=== PATIENT | male | born 2000 | race Native Hawaiian/Other Pacific Islander ===

== ENCOUNTER 2019-02-01 08:56 | Outpatient (CLI) | payer OTHER ==
[2019-02-01 10:05] LABS: Basophils % (Auto) 0.5 % (0.0-1.8); Eosinophils # (Auto) 0.3 K/mm3 (0.0-0.4); Eosinophils % (Auto) 6.1 % (0.0-4.3); Hematocrit 46.6 % (35.5-45.6); Hemoglobin 15.9 gm/dl (11.8-15.2); Lymphocytes # (Auto) 2.6 K/mm3 (1.2-5.4); Lymphocytes % (Auto) 45.6 % (13.4-35.0); Mean Corpuscular HGB Conc 34 % (32-34); Mean Corpuscular Volume 95 fl (84-94); Monocytes # (Auto) 0.4 K/mm3 (0.0-0.8); Monocytes % (Auto) 7.8 % (0.0-7.3); Platelet Count 200 K/mm3 (140-440); Red Blood Count 4.92 M/mm3 (3.65-5.03); Red Cell Distribution Width 12.8 % (13.2-15.2)
[2019-02-01 10:06] LABS: Alanine Aminotransferase 29 units/L (7-56); BUN/Creatinine Ratio 21; Blood Urea Nitrogen 21 mg/dL (9-20); Calcium 9.6 mg/dL (8.4-10.2); Hemolysis Index 9
[2019-02-01 10:28] LABS: Hepatitis C Virus Antibody Non-Reactive (NonReactive)
[2019-02-01 11:12] LABS: Hepatitis B Surface Antigen Non-Reactive (Negative)
== END 2019-02-01 08:57 | disposition home or self-care (01) ==
LOC: LAB 08:56
PROVIDERS: ATTEND Internal Medicine
DX: Z00.01 Encounter for general adult medical examination with abnormal findings (principal); E55.9 Vitamin D deficiency, unspecified; J06.9 Acute upper respiratory infection, unspecified
CPT/HCPCS: 36415; 80053; 80074; 82306; 82607; 85025; 86592; 86735; 86762; 86765; 86787; 87591

== ENCOUNTER 2019-05-21 16:39 | Emergency (ER) | payer OTHER ==
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
--- NOTE | 2019-05-21 18:00 | XRay Report ---
XR spine cervical 2-3V INDICATION / CLINICAL INFORMATION: Neck pain after fall. COMPARISON: None available. FINDINGS: BONES/JOINT(S): No vertebral fracture. No significant degenerative changes. SOFT TISSUES: No significant abnormality. ADDITIONAL FINDINGS: None. Signer Name: Marc Hickey MD Signed: 05/21/2019 5:55 PM Workstation Name: [id number]
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
[2019-05-21 19:18] VITALS: BP 125/52
== END 2019-05-21 19:17 | disposition home or self-care (01) ==
LOC: ED 16:39
DX: S00.93XA Contusion of unspecified part of head, initial encounter (principal); M54.2 Cervicalgia; F17.200 Nicotine dependence, unspecified, uncomplicated; W17.82XA Fall from (out of) grocery cart, initial encounter; Y93.89 Activity, other specified; Y92.488 Other paved roadways as the place of occurrence of the external cause; Y99.8 Other external cause status
CPT/HCPCS: 70450; 72040; 99284